=== PATIENT | male | born 1965 | race Native Hawaiian/Other Pacific Islander ===

== ENCOUNTER 2020-05-23 01:07 | Observation (INO) | payer OTHER ==
[2020-05-23 02:03] LABS: Basophils % (Auto) 0.2 % (0.0-1.8); Hematocrit 46.6 % (35.5-45.6); Hemoglobin 16.3 gm/dl (11.8-15.2); Lymphocytes # (Auto) 1.4 K/mm3 (1.2-5.4); Lymphocytes % (Auto) 7.9 % (13.4-35.0); Mean Corpuscular HGB Conc 35 % (32-34); Mean Corpuscular Volume 88 fl (84-94); Monocytes # (Auto) 0.7 K/mm3 (0.0-0.8); Monocytes % (Auto) 3.8 % (0.0-7.3); Platelet Count 298 K/mm3 (140-440); Red Cell Distribution Width 13.7 % (13.2-15.2)
[2020-05-23 02:21] LABS: Calcium 10.3 mg/dL (8.4-10.2)
[2020-05-23 02:35] LABS: Bacteria,Urine 2+ /HPF (Negative); Bilirubin,Urine NEG (Negative); Blood,Urine SM (Negative); Color,Urine Amber (Yellow); Mucus,Urine 1+ /HPF
[2020-05-23 02:39] LABS: Albumin 6.8 g/dL (3.9-5)
[2020-05-23] MEDS ORDERED: SODIUM CHLORIDE 0.9% 1000 ML 1,000 ML IV ONE ×5 (02:43→05:12)
--- NOTE | 2020-05-23 03:43 | Cat Scan Report ---
CT ABDOMEN AND PELVIS WITHOUT CONTRAST INDICATION: Generalized abdominal pain TECHNICAL: Multiple axial CT images of the abdomen and pelvis were acquired without intravenous contr ast. Sagittal and coronal reformats were obtained. All CTs at this facility utilize dose reduction techniques including automated exposure control, iterative reconstruction and weight based dosing whe n appropriate to reduce patient radiation dose to as low as reasonable achievable. COMPARISON: None. FINDINGS: Limited imaging of the bilateral lung bases demonstrates no evidence of acute abnormality. Abdomen: The liver, gallbladder, pancreas, spleen, bilateral adrenal glands and bilateral kidneys forrest w no evidence of acute abnormality. The abdominal aorta is normal in course and caliber. There is no evidence of bowel obstruction or free fluid. There may be mild wall thickening/edema of the small bow el, although the small bowel is relatively decompressed and this is difficult to determine. The appen compa is not visualized, but no pericecal inflammatory changes are noted. Pelvis: No free fluid is seen within the pelvis. The urinary bladder is decompressed and not well-vis ualized. Bones and Soft Tissues: Evaluation of bony structures demonstrates mild bony degenerative change of the lumbar spine. Evaluation of soft tissue structures demonstrates no evidence of acute soft tissue abnormality. IMPRESSION: 1. Possible mild wall thickening/edema of the small bowel, although this is difficult to determine. P lease correlate with patient's clinical presentation. Signer Name: Gissel Ely MD Signed: 05/23/2020 3:39 AM Workstation Name: [id number]
--- NOTE | 2020-05-23 03:44 | XRay Report ---
CHEST 2 VIEWS, 05/23/2020 3:10 AM INDICATION: Chest pain COMPARISON: None FINDINGS: Support devices: None. Heart: The cardiac silhouette is normal in size. Lungs/pleura: The lungs are well expanded and appear clear. Additional findings: Evaluation of bony structures demonstrates mild degenerative change of the thora cic spine. IMPRESSION: 1. No evidence of acute cardiopulmonary process. Signer Name: Gissel Ely MD Signed: 05/23/2020 3:40 AM Workstation Name: [email or web address]
[2020-05-23] MEDS ORDERED: SODIUM POLYSTYRENE 15 GM/60 ML ORAL LIQD PO ONE ×2 (03:48→03:55)
[2020-05-23] MEDS ORDERED: DEXTROSE 50% IN WATER (25GM) 50 ML SYRINGE IV ONE ×2 (03:48→03:53)
[2020-05-23] MEDS ORDERED: INSULIN REGULAR, HUMAN 100 UNIT/ML 3ML VIAL IV ONE ×2 (03:48→03:54)
[2020-05-23] MEDS ORDERED: CALCIUM CHLORIDE 1,000 MG/10 ML SYRINGE IV ONE (03:48)
[2020-05-23] MEDS ORDERED: HYDROmorphone 1 MG/1 ML INJ IV ONE (03:50)
[2020-05-23] MEDS ORDERED: ONDANSETRON 4 MG/2 ML INJ IV ONE ×2 (03:50→03:53)
[2020-05-23] MEDS ORDERED: PIPERACILLIN/TAZOBACTAM 3.375 3.375 GM/50 ML BAG IV ONE ×2 (03:51→03:53)
--- NOTE | 2020-05-23 03:52 | Emergency Department Report ---
ED General Adult HPI - General Chief complaint: Nausea/Vomiting/Diarrhea Stated complaint: BODY CRAMPS x3 DAYS NAUSEA VOMITING PUI?: No Time Seen by Provider: 05/23/20 03:48 Source: patient Mode of arrival: Ambulatory Limitations: No Limitations - History of Present Illness Initial comments: Patient is a 55-year-old male with past emergency room complaints of generalized body aches and muscle cramps and nausea and vomiting x3 days. Patient states his symptoms been going on for 3 days and the symptoms are worsening. Patient states the pain is an 8 out of 10. Patient states the pain is better with rest and worse with walking and movement. Patient states his nausea and vomiting is better with rest and n.p.o. Patient states his nausea vomiting is worse with trying to eat or drink something. Patient states is unable to hold food down for 3 days. Patient denies past medical history. Patient denies recent travel. Patient denies recent international travel. Patient denies exposure to the novel coronavirus. Patient denies sick contacts. Patient denies fever and chills. Patient denies cough. Patient denies diarrhea. Patient denies coming in contact with anybody with symptoms of the novel coronavirus. Patient states he had a coronavirus test 1 week ago and it was negative. -: Sudden, days(s) Severity scale (0 -10): 8 Quality: aching Consistency: constant Improves with: rest Worsens with: movement Associated Symptoms: nausea/vomiting. denies: confusion, chest pain, cough, diaphoresis, fever/chills, headaches, loss of appetite, malaise, rash, seizure, shortness of breath, syncope, weakness Treatments Prior to Arrival: none - Related Data Allergies Allergy/AdvReac Type Severity Reaction Status Date / Time No Known Allergies Allergy Verified 05/23/20 03:50 ED Review of Systems ROS: Stated complaint: BODY CRAMPS x3 DAYS NAUSEA VOMITING Other details as noted in HPI Constitutional: denies: chills, fever Eyes: denies: eye pain, eye discharge, vision change ENT: denies: ear pain, throat pain Respiratory: denies: cough, shortness of breath, wheezing Cardiovascular: denies: chest pain, palpitations Endocrine: no symptoms reported Gastrointestinal: nausea, vomiting. denies: abdominal pain, diarrhea Genitourinary: denies: urgency, dysuria Musculoskeletal: myalgia. denies: back pain, joint swelling, arthralgia Skin: denies: rash, lesions Neurological: denies: headache, weakness, paresthesias Psychiatric: denies: anxiety, depression Hematological/Lymphatic: denies: easy bleeding, easy bruising ED Past Medical Hx - Past Medical History Previous Medical History?: No Hx Hypertension: No Hx Diabetes: No Hx Renal Disease: No - Surgical History Past Surgical History?: No - Family History Family history: no significant - Social History Smoking Status: Current Every Day Smoker Substance Use Type: Alcohol ED Physical Exam - General Limitations: No Limitations General appearance: alert, in no apparent distress - Head Head exam: Present: atraumatic, normocephalic - Eye Eye exam: Present: normal appearance - ENT ENT exam: Present: mucous membranes moist - Neck Neck exam: Present: normal inspection - Respiratory Respiratory exam: Present: normal lung sounds bilaterally. Absent: respiratory distress - Cardiovascular Cardiovascular Exam: Present: regular rate, normal rhythm. Absent: systolic murmur, diastolic murmur, rubs, gallop - GI/Abdominal GI/Abdominal exam: Present: soft, normal bowel sounds - Rectal Rectal exam: Present: deferred - Extremities Exam Extremities exam: Present: normal inspection - Back Exam Back exam: Present: normal inspection - Neurological Exam Neurological exam: Present: alert, oriented X3 - Psychiatric Psychiatric exam: Present: normal affect, normal mood - Skin Skin exam: Present: warm, dry, intact, normal color. Absent: rash ED Course Vital Signs 05/23/20 05/23/20 01:13 04:15 Temperature 98.2 F Pulse Rate 78 Respiratory 18 18 Rate Blood Pressure 102/84 O2 Sat by Pulse 97 98 Oximetry - Reevaluation(s) Reevaluation #1: I discussed all results with patient. I discussed plan of care with patient. Patient agrees with plan of care and admission. Patient to be admitted to the hospitalist service. 05/23/20 05:16 - Consultations Consultation #1: I discussed case with nephrology, Dr. Dalton. Dr. Dalton does not have any further recommendations and orders never been placed. 05/23/20 04:23 Consultation #2: Hospitalist consulted for admission. Hospitalist to admit patient. 05/23/20 05:15 ED Medical Decision Making - Lab Data Result diagrams: 05/23/20 01:39 05/23/20 01:39 - EKG Data -: EKG Interpreted by Me EKG shows normal: sinus rhythm, axis, intervals, QRS complexes, ST-T waves Rate: normal - Radiology Data Radiology results: report reviewed interpreted by me: CHEST 2 VIEWS, 05/23/2020 3:10 AM INDICATION: Chest pain COMPARISON: None FINDINGS: Support devices: None. Heart: The cardiac silhouette is normal in size. Lungs/pleura: The lungs are well expanded and appear clear. Additional findings: Evaluation of bony structures demonstrates mild degenerative change of the thoracic spine. IMPRESSION: 1. No evidence of acute cardiopulmonary process. CT ABDOMEN AND PELVIS WITHOUT CONTRAST INDICATION: Generalized abdominal pain TECHNICAL: Multiple axial CT images of the abdomen and pelvis were acquired wit hout intravenous contrast. Sagittal and coronal reformats were obtained. All CTs at this facility utilize dose reduction techniques including automated exposure control, iterative reconstruction and weight based dosing when appropriate to reduce patient radiation dose to as low as reasonable achievable. COMPARISON: None. FINDINGS: Limited imaging of the bilateral lung bases demonstrates no evidence of acute abnormality. Abdomen: The liver, gallbladder, pancreas, spleen, bilateral adrenal glands and bilateral kidneys show no evidence of acute abnormality. The abdominal aorta is normal in course and caliber. There is no evidence of bowel obstruction or free fluid. There may be mild wall thickening/edema of the small bowel, although the small bowel is relatively decompressed and this is difficult to determine. The appendix is not visualized, but no pericecal inflammatory changes are noted. Pelvis: No free fluid is seen within the pelvis. The urinary bladder is decompre ssed and not well- visualized. Bones and Soft Tissues: Evaluation of bony structures demonstrates mild bony degenerative change of the lumbar spine. Evaluation of soft tissue structures demonstrates no evidence of acute soft tissue abnormality. IMPRESSION: 1. Possible mild wall thickening/edema of the small bowel, although this is difficult to determine. Please correlate with patient's clinical presentation. - Medical Decision Making Patient is a 61-year-old male that presents to the emergency room with complaints of myalgia, nausea and vomiting. Patient had labs done unremarkable except for lactic acidosis, acute renal failure, hyperkalemia, dehydration, elevated WBC, mildly elevated CK. Nephrology consulted early in the patient's stay. Patient given a hyperkalemia protocol. Patient given multiple normal saline boluses. Patient had a CT of the abdomen and a chest x-ray. Patient CT abdomen shows anterior colitis. Patient chest x-ray is negative. Patient admitted to the hospitalist service. - Differential Diagnosis Nausea, vomiting, dehydration, electrolyte imbalance, myalgias, cramps Critical Care Time: Yes Critical care time in (mins) excluding proc time.: 35 Critical care attestation.: If time is entered above; I have spent that time in minutes in the direct care of this critically ill patient, excluding procedure time. Critical Care Time: 35 minutes ED Disposition Clinical Impression: Hyperkalemia, Intractable nausea and vomiting, Myalgia, Dehydration, Elevated CK, Gastroenteritis, Lactic acid acidosis, SIRS (systemic inflammatory response syndrome) Acute renal failure Qualifiers: Acute renal failure type: unspecified Qualified Code(s): N17.9 - Acute kidney failure, unspecified UTI (urinary tract infection) Qualifiers: Urinary tract infection type: acute cystitis Hematuria presence: with hematuria Qualified Code(s): N30.01 - Acute cystitis with hematuria Disposition: 09 OP ADMIT IP TO THIS HOSP Is pt being admited?: Yes Does the pt Need Aspirin: No Condition: Critical Time of Disposition: 05:15
[2020-05-23] MEDS ORDERED: CALCIUM CHLORIDE 1,000 MG in SODIUM CHLORIDE 0.9% 100 ML IV ONE (03:53)
[2020-05-23] MEDS ORDERED: INSULIN REGULAR, HUMAN 100 UNITS/1 ML ONE (04:00)
[2020-05-23 07:18] LABS: Albumin 4.5 g/dL (3.9-5); Calcium 9.6 mg/dL (8.4-10.2)
[2020-05-23] MEDS ORDERED: METOCLOPRAMIDE 10 MG/2 ML INJ IV PRN (07:24)
[2020-05-23] MEDS ORDERED: ALUM-MAG HYDROXIDE-SIMETHICONE 200-200-20MG/5ML ORAL LIQD 30 ML PO PRN (07:24)
[2020-05-23] MEDS ORDERED: DEXTROSE 50% IN WATER (25GM) 50 ML SYRINGE IV PRN (07:24)
[2020-05-23] MEDS ORDERED: oxyCODONE /ACETAMINOPHEN 5-325MG TAB PO PRN (07:24)
[2020-05-23] MEDS ORDERED: ACETAMINOPHEN 325 MG TAB PO PRN (07:24)
[2020-05-23] MEDS ORDERED: SODIUM CHLORIDE 0.9% 1000 ML 1,000 ML IV SCH (08:30)
--- NOTE | 2020-05-23 08:56 | History and Physical Report ---
<TIERRA BARTH - Last Filed: 05/23/20 16:53> History of Present Illness Date of admission: 05/23/20 05:38 Chief complaint: muscle cramps for 3 days with vomiting x1 episode History of present illness: This is a 55-year-old Citizen Of The [place] speaking male with no medical history except HLD (not on medications) who presented on 05/23 with generalized body aches and muscle cramps for 3 days with one episode of vomiting on 05/22. He states he has not had any diarrhea. He denies CP, cough, hemoptysis, chils, fever, recent weight loss and night sweats. He denies any recent contacts with sick individuals or people with known COVID 19. He also produces a COVID 19 PCR from [place] on 05/12 [facility] shows he is negative for COVID at the time. 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 He states he has not has any food within the past 3 days and has only been drinking Gatorade. Workup in the ED included an CT abd/pelvis which shows anterior colitis and a CXR which shows no acute process. Labs revealed LA at 3.5, leukocytosis at 18.1, , hyponaturemia at 134, hyperkalemia at 7.7, metabolic acidosis with CO2 at 20, and MARY 3.6/44 possibly from vasomotor nephropathy, slightly elevated liver enzymes (AST 44, Alk phos 134), and an UA that shows leukocyte esterase but negative for ni trates. He received 5 L NS in the ED, zofran x2, kionex D50, insluin and zosyn in the ED. ID and nephrology was consulted. He will be admitted to the hospitalist service for electrolyte derangements, MARY, and UTI treatment. Advanced care planning done at bedside. Bedside interview conducted with the help of a shoe singer. Past History Past Medical History: hyperlipidemia Past Surgical History: No surgical history Social history: lives with family, full code. denies: smoking, alcohol abuse, prescription drug abuse, IV drug use Family history: no significant family history Medications and Allergies Allergies Allergy/AdvReac Type Severity Reaction Status Date / Time No Known Allergies Allergy Verified 05/23/20 03:50 Home Medications Medication Instructions Recorded Confirmed Last Taken Type No Known Home Medications [No 05/23/20 05/23/20 Unknown History Reported Home Medications] Active Meds: Active Medications Acetaminophen (Tylenol) 650 mg PO Q6H PRN PRN Reason: Pain MILD(1-3)/Fever >100.5/HAYES Al Hydrox/Mg Hydrox/Simethicone (Alum-Mag Hydrox-Simeth [phone]/5ml) 30 ml PO Q4H PRN PRN Reason: Indigestion Dextrose (D50w (25gm) Syringe) 50 ml IV Q30MIN PRN; Protocol PRN Reason: Hypoglycemia Famotidine (Pepcid) 20 mg IV QDAY SID Heparin Sodium (Porcine) (Heparin) 5,000 unit SUB-Q Q12HR SID Sodium Chloride (Nacl 0.9% 1000 Ml) 1,000 mls @ 250 mls/hr IV ONCE ONE Stop: 05/23/20 09:11 Sodium Chloride (Nacl 0.9% 1000 Ml) 1,000 mls @ 150 mls/hr IV DIRECT SID Cefepime HCl (Cefepime/Ns 1 Gm/100 Ml) 1 gm in 100 mls @ 200 mls/hr IV Q24HR SID; Protocol Metronidazole (Flagyl 500 Mg/100 Ml) 500 mg in 100 mls @ 100 mls/hr IV Q8HR SID ; Protocol Sodium Chloride (Nacl 0.9% 1000 Ml) 1,000 mls @ 0 mls/hr IV ONCE SID Stop: 05/24/20 08:31 Metoclopramide HCl (Reglan) 10 mg IV Q6H PRN PRN Reason: Nausea And Vomiting Oxycodone/Acetaminophen (Percocet 5/325) 1 tab PO Q6H PRN PRN Reason: Pain, Moderate (4-6) Sodium Chloride (Sodium Chloride Flush Syringe 10 Ml) 10 ml IV BID SID Sodium Chloride (Sodium Chloride Flush Syringe 10 Ml) 10 ml IV PRN PRN PRN Reason: LINE FLUSH Review of Systems Constitutional: weakness, poor appetite, no weight loss, no weight gain, no fever, no chills, no sweats, no night sweats, no anorexia, no fatigue Ears, nose, mouth and throat: no ear pain, no ear discharge, no tinnitis, no decreased hearing, no nose pain, no nasal congestion, no epistaxis, no bleeding gums Cardiovascular: no chest pain, no orthopnea, no palpitations, no rapid/irregular heart beat, no edema, no syncope, no lightheadedness, no shortness of breath, no dyspnea on exertion, no high blood pressure, no leg edema Respiratory: no cough, no cough with sputum, no excessive sputum, no hemoptysis, no shortness of breath, no dyspnea on exertion Gastrointestinal: nausea (one episode), no abdominal pain, no vomiting Genitourinary Male: no dysuria, no hematuria, no flank pain, no discharge Rectal: no pain, no incontinence, no bleeding, no hemorrhoids Musculoskeletal: muscle weakness, muscle cramps, no neck stiffness, no neck pain, no shooting arm pain, no arm numbness/tingling, no low back pain, no shooting leg pain, no leg numbness/tingling, no redness of joints, no hot joints, no morning stiffness, no frequent falls Integumentary: no deferred, no rash, no pruritis, no redness, no sores Neurological: weakness, no head injury, no transient paralysis, no paralysis, no parathesias, no numbness, no tingling, no seizures, no syncope, no tremors, no headaches Psychiatric: no anxiety, no memory loss, no change in sleep habits, no sleep disturbances Endocrine: no cold intolerance, no heat intolerance, no polyphagia, no excessive thirst, no polydipsia, no flushing, no weight change, no high blood sugars Hematologic/Lymphatic: no easy bruising, no easy bleeding Allergic/Immunologic: no urticaria, no allergic rhinitis, no persistent infections Exam - Constitutional Vitals: Temp Pulse Resp BP Pulse Ox 98.2 F 78 18 102/84 98 05/23/20 08:00 05/23/20 01:13 05/23/20 04:15 05/23/20 01:13 05/23/20 04:15 General appearance: Present: mild distress - EENT Eyes: Present: PERRL, EOM intact ENT: hearing intact - Neck Neck: Present: supple, normal ROM - Respiratory Respiratory effort: normal Respiratory: bilateral: CTA - Cardiovascular Rhythm: regular Heart Sounds: Present: S1 & S2. Absent: systolic murmur - Extremities Extremities: no ischemia, pulses intact, pulses symmetrical, No edema, normal temperature, normal color, Full ROM Peripheral Pulses: within normal limits - Abdominal General gastrointestinal: Present: soft, non-tender, non-distended, normal bowel sounds - Integumentary Integumentary: Present: clear, warm, dry - Musculoskeletal Musculoskeletal: generalized weakness - Psychiatric Psychiatric: appropriate mood/affect, cooperative - Neurologic Neurologic: CNII-XII intact, no focal deficits, moves all extremities - Allied Health Allied health notes reviewed: nursing Results - Labs CBC & Chem 7: 05/23/20 01:39 05/23/20 15:20 Labs: Laboratory Last Values WBC 18.1 K/mm3 (4.5-11.0) H 05/23/20 01:39 RBC 5.30 M/mm3 (3.65-5.03) H 05/23/20 01:39 Hgb 16.3 gm/dl (11.8-15.2) H 05/23/20 01:39 Hct 46.6 % (35.5-45.6) H 05/23/20 01:39 MCV 88 fl (84-94) 05/23/20 01:39 MCH 31 pg (28-32) 05/23/20 01:39 MCHC 35 % (32-34) H 05/23/20 01:39 RDW 13.7 % (13.2-15.2) 05/23/20 01:39 Plt Count 298 K/mm3 (140-440) 05/23/20 01:39 Lymph % (Auto) 7.9 % (13.4-35.0) L 05/23/20 01:39 [place] % (Auto) 3.8 % (0.0-7.3) 05/23/20 01:39 Eos % (Auto) 0.0 % (0.0-4.3) 05/23/20 01:39 Baso % (Auto) 0.2 % (0.0-1.8) 05/23/20 01:39 Lymph # 1.4 K/mm3 (1.2-5.4) 05/23/20 01:39 [place] # 0.7 K/mm3 (0.0-0.8) 05/23/20 01:39 Eos # 0.0 K/mm3 (0.0-0.4) 05/23/20 01:39 Baso # 0.0 K/mm3 (0.0-0.1) 05/23/20 01:39 Seg Neutrophils % 88.1 % (40.0-70.0) H 05/23/20 01:39 Seg Neutrophils # 16.0 K/mm3 (1.8-7.7) H 05/23/20 01:39 Sodium 141 mmol/L (137-145) D 05/23/20 05:54 Potassium 4.8 mmol/L (3.6-5.0) D 05/23/20 05:54 Chloride 103.0 mmol/L (98-107) 05/23/20 05:54 Carbon Dioxide 17 mmol/L (22-30) L 05/23/20 05:54 Anion Gap 26 mmol/L 05/23/20 05:54 BUN 38 mg/dL (9-20) H 05/23/20 05:54 Creatinine 2.4 mg/dL (0.8-1.3) H 05/23/20 05:54 Estimated GFR 28 ml/min 05/23/20 05:54 BUN/Creatinine Ratio 16 % 05/23/20 05:54 Glucose 145 mg/dL (75-100) H 05/23/20 05:54 Lactic Acid 4.60 mmol/L (0.7-2.0) H* 05/23/20 05:54 Calcium 9.6 mg/dL (8.4-10.2) 05/23/20 05:54 Total Bilirubin 0.60 mg/dL (0.1-1.2) 05/23/20 05:54 AST 29 units/L (5-40) 05/23/20 05:54 ALT 35 units/L (7-56) 05/23/20 05:54 Alkaline Phosphatase 91 units/L (35-129) 05/23/20 05:54 Total Creatine Kinase 321 units/L (55-170) H 05/23/20 01:39 Total Protein 7.9 g/dL (6.3-8.2) D 05/23/20 05:54 Albumin 4.5 g/dL (3.9-5) 05/23/20 05:54 Albumin/Globulin Ratio 1.3 % 05/23/20 05:54 Lipase 27 units/L (13-60) 05/23/20 03:36 Urine Color Pilar (Yellow) 05/23/20 Unknown Urine Turbidity Turbid (Clear) 05/23/20 Unknown Urine pH 5.0 (5.0-7.0) 05/23/20 Unknown Ur Specific [place] 1.020 (1.003-1.030) 05/23/20 Unknown Urine Protein 100 mg/dl mg/dL (Negative) 05/23/20 Unknown Urine Glucose (UA) Neg mg/dL (Negative) 05/23/20 Unknown Urine Ketones Tr mg/dL (Negative) 05/23/20 Unknown Urine Blood Sm (Negative) 05/23/20 Unknown Urine Nitrite Neg (Negative) 05/23/20 Unknown Urine Bilirubin Neg (Negative) 05/23/20 Unknown Urine Urobilinogen 2.0 mg/dL (<2.0) 05/23/20 Unknown Ur Leukocyte Esterase Tr (Negative) 05/23/20 Unknown Urine WBC (Auto) 10.0 /HPF (0.0-6.0) H 05/23/20 Unknown Urine RBC (Auto) 15.0 /HPF (0.0-6.0) 05/23/20 Unknown U Epithel Cells (Auto) 2.0 /HPF (0-13.0) 05/23/20 Unknown Urine Bacteria (Auto) 2+ /HPF (Negative) 05/23/20 Unknown Urine Mucus 1+ /HPF 05/23/20 Unknown Urine Yeast (Budding) 1+ /HPF 05/23/20 Unknown - Imaging and Cardiology Chest x-ray: report reviewed - Diagnostic Impressions Diagnostic Impressions: 05/23 CXR shows no evidence of acute cardiopulmonary process. 05/23 CT abd/pelvis shows possible mild wall thickening/edema of the small bowel, although this is difficult to determine. Fontaine/IV: IV Catheter Type [Left Upper INT / Saline Lock arm] Assessment and Plan VTE prophylaxis?: Chemical, Mechanical Plan of care discussed with patient/family: Yes - Patient Problems (1) SIRS (systemic inflammatory response syndrome) Current Visit: Yes Status: Acute Plan to address problem: -Presented with leukocytosis, MARY, lactic acidosis, hyperkalemia -Status post normal saline boluses -NS IV fluid -Trend CBC -05/23 urine culture -05/23 urinalysis added for leukocyte esterase but negative for nitrates, WBC 10 (2) Gastroenteritis Current Visit: Yes Status: Acute Plan to address problem: -05/23 CT abdomen pelvis shows mild wall thickening or edema of small bowel -GI consulted -Initiated IV antibiotic -IV antiemetics PRN -Supportive care (3) Acute renal failure Current Visit: Yes Status: Acute Qualifiers: Acute renal failure type: unspecified Qualified Code(s): N17.9 - Acute kidney failure, unspecified Plan to address problem: - Admit creatinine of 7.7 - Nephrology consulted in the emergency department - Received 5 L normal saline bolus, 20 units of regular insulin, 2 g of calcium chloride, 75 mL of D50 in the ED - 2 L normal saline bolus x1 MIVF NS at 125ml/hr - Trend BMP - Avoid nephrotoxic medication - Secondary to visible motor nephropathy ending of dehydration (4) UTI (urinary tract infection) Current Visit: Yes Status: Acute Qualifiers: Urinary tract infection type: acute cystitis Hematuria presence: with hematuria Qualified Code(s): N30.01 - Acute cystitis with hematuria Plan to address problem: -05/23 urine analysis positive for leukocyte esterase, WBC 10 -Initiated on cefepime -Infectious disease consulted -trend CBC -05/23 urine culture pending (5) Hyperkalemia Current Visit: Yes Status: Acute Plan to address problem: - Received 2 g calcium chloride, 75ml of D50, 20 units of insulin, Kionex 120 g - Trend BMP - Monitor for ECG changes (6) Dehydration Current Visit: Yes Status: Acute Plan to address problem: - s/p 5 L NS bolus in the ED - Give 2L NS bolus now - MIVF @ 125mL/hr - Trend BMP (7) Lactic acid acidosis Current Visit: Yes Status: Acute Plan to address problem: - Trend LA - s/p 5L NS bolus - 2 additional liters of NS - MIVF (8) Elevated CK Current Visit: Yes Status: Acute Plan to address problem: - Trend CK - MIVF and bolus IVF - s/p 5L NS bolus in ED (9) Myalgia Current Visit: Yes Status: Acute Plan to address problem: - PT/OT consult - Supportive care - Fall precautions (10) DVT prophylaxis Current Visit: Yes Status: Acute Plan to address problem: -SCDs to bilateral lower extremities while in bed -Heparin subcu (11) Full code status Current Visit: Yes Status: Acute <NGA SMALLS - Last Filed: 05/23/20 19:11> History of Present Illness Date of examination: 05/23/20 Date of admission: 05/23/20 05:38 Medications and Allergies Active Meds: Active Medications Acetaminophen (Tylenol) 650 mg PO Q6H PRN PRN Reason: Pain MILD(1-3)/Fever >100.5/HAYES Al Hydrox/Mg Hydrox/Simethicone (Alum-Mag Hydrox-Simeth [phone]/5ml) 30 ml PO Q4H PRN PRN Reason: Indigestion Dextrose (D50w (25gm) Syringe) 50 ml IV Q30MIN PRN; Protocol PRN Reason: Hypoglycemia Famotidine (Pepcid) 20 mg IV QDAY [facility] Last Admin: 05/23/20 10:01 Dose: 20 mg Documented by: Heparin Sodium (Porcine) (Heparin) 5,000 unit SUB-Q Q12HR [facility] Last Admin: 05/23/20 10:01 Dose: 5,000 unit Documented by: Sodium Chloride (Nacl 0.9% 1000 Ml) 1,000 mls @ 150 mls/hr IV DIRECT [facility] Last Admin: 05/23/20 12:08 Dose: 150 mls/hr Documented by: Sodium Chloride (Nacl 0.9% 1000 Ml) 1,000 mls @ 0 mls/hr IV ONCE [facility] Stop: 05/24/20 08:31 Metoclopramide HCl (Reglan) 10 mg IV Q6H PRN PRN Reason: Nausea And Vomiting Oxycodone/Acetaminophen (Percocet 5/325) 1 tab PO Q6H PRN PRN Reason: Pain, Moderate (4-6) Sodium Chloride (Sodium Chloride Flush Syringe 10 Ml) 10 ml IV BID [facility] Last Admin: 05/23/20 10:01 Dose: 10 ml Documented by: Sodium Chloride (Sodium Chloride Flush Syringe 10 Ml) 10 ml IV PRN PRN PRN Reason: LINE FLUSH Exam - Constitutional Vitals: Temp Pulse Resp BP Pulse Ox 98.1 F 61 18 130/68 98 05/23/20 17:59 05/23/20 17:59 05/23/20 17:59 05/23/20 17:59 05/23/20 17:59 Results - Labs CBC & Chem 7: 05/23/20 01:39 05/23/20 15:20 Labs: Laboratory Last Values WBC 18.1 K/mm3 (4.5-11.0) H 05/23/20 01:39 RBC 5.30 M/mm3 (3.65-5.03) H 05/23/20 01:39 Hgb 16.3 gm/dl (11.8-15.2) H 05/23/20 01:39 Hct 46.6 % (35.5-45.6) H 05/23/20 01:39 MCV 88 fl (84-94) 05/23/20 01:39 MCH 31 pg (28-32) 05/23/20 01:39 MCHC 35 % (32-34) H 05/23/20 01:39 RDW 13.7 % (13.2-15.2) 05/23/20 01:39 Plt Count 298 K/mm3 (140-440) 05/23/20 01:39 Lymph % (Auto) 7.9 % (13.4-35.0) L 05/23/20 01:39 [place] % (Auto) 3.8 % (0.0-7.3) 05/23/20 01:39 Eos % (Auto) 0.0 % (0.0-4.3) 05/23/20 01:39 Baso % (Auto) 0.2 % (0.0-1.8) 05/23/20 01:39 Lymph # 1.4 K/mm3 (1.2-5.4) 05/23/20 01:39 [place] # 0.7 K/mm3 (0.0-0.8) 05/23/20 01:39 Eos # 0.0 K/mm3 (0.0-0.4) 05/23/20 01:39 Baso # 0.0 K/mm3 (0.0-0.1) 05/23/20 01:39 Seg Neutrophils % 88.1 % (40.0-70.0) H 05/23/20 01:39 Seg Neutrophils # 16.0 K/mm3 (1.8-7.7) H 05/23/20 01:39 Sodium 144 mmol/L (137-145) 05/23/20 09:46 Potassium 4.6 mmol/L (3.6-5.0) 05/23/20 09:46 Chloride 106.6 mmol/L (98-107) 05/23/20 09:46 Carbon Dioxide 19 mmol/L (22-30) L 05/23/20 09:46 Anion Gap 23 mmol/L 05/23/20 09:46 BUN 27 mg/dL (9-20) H 05/23/20 15:20 Creatinine 1.0 mg/dL (0.8-1.3) 05/23/20 15:20 Estimated GFR > 60 ml/min 05/23/20 15:20 BUN/Creatinine Ratio 21 % 05/23/20 09:46 Glucose 118 mg/dL (75-100) H 05/23/20 09:46 Lactic Acid 1.80 mmol/L (0.7-2.0) 05/23/20 15:20 Calcium 9.8 mg/dL (8.4-10.2) 05/23/20 09:46 Total Bilirubin 0.60 mg/dL (0.1-1.2) 05/23/20 09:46 AST 31 units/L (5-40) 05/23/20 09:46 ALT 36 units/L (7-56) 05/23/20 09:46 Alkaline Phosphatase 94 units/L (35-129) 05/23/20 09:46 Total Creatine Kinase 366 units/L (55-170) H 05/23/20 15:20 Total Protein 8.5 g/dL (6.3-8.2) H 05/23/20 09:46 Albumin 4.8 g/dL (3.9-5) 05/23/20 09:46 Albumin/Globulin Ratio 1.3 % 05/23/20 09:46 Lipase 27 units/L (13-60) 05/23/20 03:36 Urine Color [place]ilar (Yellow) 05/23/20 Unknown Urine Turbidity Turbid (Clear) 05/23/20 Unknown Urine pH 5.0 (5.0-7.0) 05/23/20 Unknown Ur Specific [place] 1.020 (1.003-1.030) 05/23/20 Unknown Urine Protein 100 mg/dl mg/dL (Negative) 05/23/20 Unknown Urine Glucose (UA) Neg mg/dL (Negative) 05/23/20 Unknown Urine Ketones Tr mg/dL (Negative) 05/23/20 Unknown Urine Blood Sm (Negative) 05/23/20 Unknown Urine Nitrite Neg (Negative) 05/23/20 Unknown Urine Bilirubin Neg (Negative) 05/23/20 Unknown Urine Urobilinogen 2.0 mg/dL (<2.0) 05/23/20 Unknown Ur Leukocyte Esterase Tr (Negative) 05/23/20 Unknown Urine WBC (Auto) 10.0 /HPF (0.0-6.0) H 05/23/20 Unknown Urine RBC (Auto) 15.0 /HPF (0.0-6.0) 05/23/20 Unknown U Epithel Cells (Auto) 2.0 /HPF (0-13.0) 05/23/20 Unknown Urine Bacteria (Auto) 2+ /HPF (Negative) 05/23/20 Unknown Urine Mucus 1+ /HPF 05/23/20 Unknown Urine Yeast (Budding) 1+ /HPF 05/23/20 Unknown Fontaine/IV: Voiding Method Toilet IV Catheter Type [Left Upper INT / Saline Lock arm] Assessment and Plan Assessment and plan: I saw and evaluated the patient. I agree with the findings and the plan of care as documented in the Nurse Practitioner's~note, with the following corrections and additions. Dehydration noted aggressive hydration with noted improvement in renal function. Continue current management. Can downgrade to telemetry.
--- NOTE | 2020-05-23 09:17 | History and Physical Report ---
History of Present Illness Date of examination: 05/23/20 Date of admission: 05/23/20 05:38 Chief complaint: muscle cramps x3 days, vomiting x1 day History of present illness: Patient is a 55-year-old male with past emergency room complaints of generalized body aches and muscle cramps and nausea and vomiting x3 days. Patient states his symptoms been going on for 3 days and the symptoms are worsening. Patient states the pain is an 8 out of 10. Patient states the pain is better with rest and worse with walking and movement. Patient states his nausea and vomiting is better with rest and n.p.o. Patient states his nausea vomiting is worse with trying to eat or drink something. Patient states is unable to hold food down for 3 days. Patient denies past medical history. Patient denies recent travel. Patient denies recent international travel. Patient denies exposure to the novel coronavirus. Patient denies sick contacts. Patient denies fever and chills. Patient denies cough. Patient denies diarrhea. Patient denies coming in contact with anybody with symptoms of the novel coronavirus. Patient states he had a coronavirus test 1 week ago and it was negative. -: Sudden, days(s) Medications and Allergies Allergies Allergy/AdvReac Type Severity Reaction Status Date / Time No Known Allergies Allergy Verified 05/23/20 03:50 Active Meds: Active Medications Acetaminophen (Tylenol) 650 mg PO Q6H PRN PRN Reason: Pain MILD(1-3)/Fever >100.5/HAYES Al Hydrox/Mg Hydrox/Simethicone (Alum-Mag Hydrox-Simeth [phone]/5ml) 30 ml PO Q4H PRN PRN Reason: Indigestion Dextrose (D50w (25gm) Syringe) 50 ml IV Q30MIN PRN; Protocol PRN Reason: Hypoglycemia Famotidine (Pepcid) 20 mg IV QDAY SID Heparin Sodium (Porcine) (Heparin) 5,000 unit SUB-Q Q12HR SID Sodium Chloride (Nacl 0.9% 1000 Ml) 1,000 mls @ 250 mls/hr IV ONCE ONE Stop: 05/23/20 09:11 Sodium Chloride (Nacl 0.9% 1000 Ml) 1,000 mls @ 150 mls/hr IV DIRECT SID Cefepime HCl (Cefepime/Ns 1 Gm/100 Ml) 1 gm in 100 mls @ 200 mls/hr IV Q24HR SID; Protocol Metronidazole (Flagyl 500 Mg/100 Ml) 500 mg in 100 mls @ 100 mls/hr IV Q8HR SID; Protocol Sodium Chloride (Nacl 0.9% 1000 Ml) 1,000 mls @ 0 mls/hr IV ONCE SID Stop: 05/24/20 08:31 Metoclopramide HCl (Reglan) 10 mg IV Q6H PRN PRN Reason: Nausea And Vomiting Oxycodone/Acetaminophen (Percocet 5/325) 1 tab PO Q6H PRN PRN Reason: Pain, Moderate (4-6) Sodium Chloride (Sodium Chloride Flush Syringe 10 Ml) 10 ml IV BID SID Sodium Chloride (Sodium Chloride Flush Syringe 10 Ml) 10 ml IV PRN PRN PRN Reason: LINE FLUSH Exam - Constitutional Vitals: Temp Pulse Resp BP Pulse Ox 98.2 F 78 18 102/84 98 05/23/20 01:13 05/23/20 01:13 05/23/20 04:15 05/23/20 01:13 05/23/20 04:15 Results - Labs CBC & Chem 7: 05/23/20 01:39 05/23/20 05:54 Labs: Laboratory Last Values WBC 18.1 K/mm3 (4.5-11.0) H 05/23/20 01:39 RBC 5.30 M/mm3 (3.65-5.03) H 05/23/20 01:39 Hgb 16.3 gm/dl (11.8-15.2) H 05/23/20 01:39 Hct 46.6 % (35.5-45.6) H 05/23/20 01:39 MCV 88 fl (84-94) 05/23/20 01:39 MCH 31 pg (28-32) 05/23/20 01:39 MCHC 35 % (32-34) H 05/23/20 01:39 RDW 13.7 % (13.2-15.2) 05/23/20 01:39 Plt Count 298 K/mm3 (140-440) 05/23/20 01:39 Lymph % (Auto) 7.9 % (13.4-35.0) L 05/23/20 01:39 [place] % (Auto) 3.8 % (0.0-7.3) 05/23/20 01:39 Eos % (Auto) 0.0 % (0.0-4.3) 05/23/20 01:39 Baso % (Auto) 0.2 % (0.0-1.8) 05/23/20 01:39 Lymph # 1.4 K/mm3 (1.2-5.4) 05/23/20 01:39 [place] # 0.7 K/mm3 (0.0-0.8) 05/23/20 01:39 Eos # 0.0 K/mm3 (0.0-0.4) 05/23/20 01:39 Baso # 0.0 K/mm3 (0.0-0.1) 05/23/20 01:39 Seg Neutrophils % 88.1 % (40.0-70.0) H 05/23/20 01:39 Seg Neutrophils # 16.0 K/mm3 (1.8-7.7) H 05/23/20 01:39 Sodium 141 mmol/L (137-145) D 05/23/20 05:54 Potassium 4.8 mmol/L (3.6-5.0) D 05/23/20 05:54 Chloride 103.0 mmol/L (98-107) 05/23/20 05:54 Carbon Dioxide 17 mmol/L (22-30) L 05/23/20 05:54 Anion Gap 26 mmol/L 05/23/20 05:54 BUN 38 mg/dL (9-20) H 05/23/20 05:54 Creatinine 2.4 mg/dL (0.8-1.3) H 05/23/20 05:54 Estimated GFR 28 ml/min 05/23/20 05:54 BUN/Creatinine Ratio 16 % 05/23/20 05:54 Glucose 145 mg/dL (75-100) H 05/23/20 05:54 Lactic Acid 4.60 mmol/L (0.7-2.0) H* 05/23/20 05:54 Calcium 9.6 mg/dL (8.4-10.2) 05/23/20 05:54 Total Bilirubin 0.60 mg/dL (0.1-1.2) 05/23/20 05:54 AST 29 units/L (5-40) 05/23/20 05:54 ALT 35 units/L (7-56) 05/23/20 05:54 Alkaline Phosphatase 91 units/L (35-129) 05/23/20 05:54 Total Creatine Kinase 321 units/L (55-170) H 05/23/20 01:39 Total Protein 7.9 g/dL (6.3-8.2) D 05/23/20 05:54 Albumin 4.5 g/dL (3.9-5) 05/23/20 05:54 Albumin/Globulin Ratio 1.3 % 05/23/20 05:54 Lipase 27 units/L (13-60) 05/23/20 03:36 Urine Color [place]ilar (Yellow) 05/23/20 Unknown Urine Turbidity Turbid (Clear) 05/23/20 Unknown Urine pH 5.0 (5.0-7.0) 05/23/20 Unknown Ur Specific [place] 1.020 (1.003-1.030) 05/23/20 Unknown Urine Protein 100 mg/dl mg/dL (Negative) 05/23/20 Unknown Urine Glucose (UA) Neg mg/dL (Negative) 05/23/20 Unknown Urine Ketones Tr mg/dL (Negative) 05/23/20 Unknown Urine Blood Sm (Negative) 05/23/20 Unknown Urine Nitrite Neg (Negative) 05/23/20 Unknown Urine Bilirubin Neg (Negative) 05/23/20 Unknown Urine Urobilinogen 2.0 mg/dL (<2.0) 05/23/20 Unknown Ur Leukocyte Esterase Tr (Negative) 05/23/20 Unknown Urine WBC (Auto) 10.0 /HPF (0.0-6.0) H 05/23/20 Unknown Urine RBC (Auto) 15.0 /HPF (0.0-6.0) 05/23/20 Unknown U Epithel Cells (Auto) 2.0 /HPF (0-13.0) 05/23/20 Unknown Urine Bacteria (Auto) 2+ /HPF (Negative) 05/23/20 Unknown Urine Mucus 1+ /HPF 05/23/20 Unknown Urine Yeast (Budding) 1+ /HPF 05/23/20 Unknown Fontaine/IV: IV Catheter Type [Left Upper INT / Saline Lock arm]
[2020-05-23] MEDS ORDERED: CEFEPIME/NS 1 GM/100 ML 1 GM/100 ML BAG IV SCH ×2 (10:00→22:00)
[2020-05-23] MEDS: HEPARIN 5,000 UNIT/1 ML VIAL SUB-Q SCH ×2 (10:01→22:27)
[2020-05-23] MEDS: FAMOTIDINE 20 MG/2 ML INJ IV SCH (10:01)
[2020-05-23 10:25] LABS: Albumin 4.8 g/dL (3.9-5); Calcium 9.8 mg/dL (8.4-10.2)
--- NOTE | 2020-05-23 11:36 | Consultation ---
History of Present Illness - Reason for Consult Consult date: 05/23/20 acute renal failure, hyperkalemia Requesting physician: TIERRA BARTH - History of Present Illness This is a 55yo M with past medical history of hyperlipidemia, who presents to ER with complaints of generalized body aches and muscle cramps for 3 days with one episode of vomiting on 05/22. denies diarrhea, CP, cough, hemoptysis, chils, fever, recent weight loss and night sweats. He denies any recent contacts with sick individuals or people with known COVID 19. He also had COVID 19 PCR test at [facility] on 05/[address] abd/pelvis in ER showed anterior colitis and a CXR which shows no acute process. Labs revealed LA at 3.5, leukocytosis at 18.1, , hyponaturemia at 134, hyperkalemia at 7.7, metabolic acidosis with CO2 at 20, along with elevated BUN/Cr at 41/3.6mg/dl. renal consult is requested for management of MARY/hyperkalemia. Pt was treated medically for hyperkalemia with kionex, D50, insluin and received 5L IV NS. Pt denies previous history for MARY, no recent NSAIDs use or IV contrast exposure. Past History Past Medical History: hyperlipidemia Past Surgical History: No surgical history Social history: no significant social history Family history: no significant family history Medications and Allergies Allergies Allergy/AdvReac Type Severity Reaction Status Date / Time No Known Allergies Allergy Verified 05/23/20 03:50 Home Medications Medication Instructions Recorded Confirmed Last Taken Type No Known Home Medications [No 05/23/20 05/23/20 Unknown History Reported Home Medications] Active Meds: Active Medications Acetaminophen (Tylenol) 650 mg PO Q6H PRN PRN Reason: Pain MILD(1-3)/Fever >100.5/HAYES Al Hydrox/Mg Hydrox/Simethicone (Alum-Mag Hydrox-Simeth [id number]/5ml) 30 ml PO Q4H PRN PRN Reason: Indigestion Dextrose (D50w (25gm) Syringe) 50 ml IV Q30MIN PRN; Protocol PRN Reason: Hypoglycemia Famotidine (Pepcid) 20 mg IV QDAY SID Last Admin: 05/23/20 10:01 Dose: 20 mg Documented by: Heparin Sodium (Porcine) (Heparin) 5,000 unit SUB-Q Q12HR SID Last Admin: 05/23/20 10:01 Dose: 5,000 unit Documented by: Sodium Chloride (Nacl 0.9% 1000 Ml) 1,000 mls @ 150 mls/hr IV DIRECT SID Metronidazole (Flagyl 500 Mg/100 Ml) 500 mg in 100 mls @ 100 mls/hr IV Q8HR SID; Protocol Sodium Chloride (Nacl 0.9% 1000 Ml) 1,000 mls @ 0 mls/hr IV ONCE SID Stop: 05/24/20 08:31 Cefepime HCl (Cefepime/Ns 1 Gm/100 Ml) 1 gm in 100 mls @ 200 mls/hr IV Q12HR SID; Protocol Metoclopramide HCl (Reglan) 10 mg IV Q6H PRN PRN Reason: Nausea And Vomiting Oxycodone/Acetaminophen (Percocet 5/325) 1 tab PO Q6H PRN PRN Reason: Pain, Moderate (4-6) Sodium Chloride (Sodium Chloride Flush Syringe 10 Ml) 10 ml IV BID SID Last Admin: 05/23/20 10:01 Dose: 10 ml Documented by: Sodium Chloride (Sodium Chloride Flush Syringe 10 Ml) 10 ml IV PRN PRN PRN Reason: LINE FLUSH Review of Systems All systems: negative Constitutional: anorexia, weakness, malaise, lethargy, poor appetite Gastrointestinal: nausea, vomiting Exam - Vital Signs Vital signs: Vital Signs Temp Pulse Resp BP Pulse Ox 98.2 F 78 18 102/84 97 05/23/20 01:13 05/23/20 01:13 05/23/20 01:13 05/23/20 01:13 05/23/20 01:13 - General Appearance General appearance: well-developed, well-nourished, appears stated age EENT: ATNC, PERRL, mucous membranes moist Neck: Present: neck supple Respiratory: Clear to Ascultation Heart: regular, S1S2 Gastrointestinal: Present: normoactive bowel sounds Integumentary: no rash, other (no edema ) Neurologic: no focal deficit, alert and oriented x3, strength 5/5, CN 3-12 intact Psychiatric: mood/affect appropriate, cooperative Results - Lab Results 05/23/20 01:39 05/23/20 09:46 Most recent lab results Calcium 9.8 mg/dL (8.4-10.2) 05/23/20 09:46 Assessment and Plan - Patient Problems (1) Acute renal failure Current Visit: Yes Status: Acute Qualifiers: Acute renal failure type: unspecified Qualified Code(s): N17.9 - Acute kidney failure, unspecified Plan to address problem: likely pre-renal azotemia in the setting of gastroenteritis/sepsis. Renal function improving on IVF, cont IV NS at 75ml/hr. check urine lytes, urine P/C ratio. avoid nephrotoxins, maintain MAP > 65mmHg. Will monitor lytes and renal parameters closely and make further recommendations (2) Hyperkalemia Current Visit: Yes Status: Acute Plan to address problem: d/t decreased distal tubular Na delivery in the setting of MARY. improving s/p medical treatment and on IV NS. cont 2g K renal diet (3) Gastroenteritis Current Visit: Yes Status: Acute Plan to address problem: management as per primary attending (4) Lactic acid acidosis Current Visit: Yes Status: Acute Plan to address problem: LA trending down (5) SIRS (systemic inflammatory response syndrome) Current Visit: Yes Status: Acute
[2020-05-23] MEDS: SODIUM CHLORIDE 0.9% 1000 ML 1,000 ML IV SCH ×2 (12:08→22:29)
[2020-05-23] MEDS ORDERED: metroNIDAZOLE/NS 500 MG/100 ML 500 MG/100 ML BAG IV SCH (14:00)
--- NOTE | 2020-05-23 15:15 | Consultation ---
History of Present Illness - Reason for Consult Consult date: 05/23/20 UTI/colitis Requesting physician: TIERRA BARTH - History of Present Illness The patient is a 55-year-old male with hyperlipidemia not on any medications came into the emergency room with generalized body aches, muscle cramps going on for 3 days. He also had some vomiting but no diarrhea. He has not had any fever. He tested negative for COVID-19 at [facility] on 05/12/2020. Additional evaluation in the emergency room showed leukocytosis, hyponatremia, hyperkalemia along with lactic acidosis and creatinine elevation. CT scan of his abdomen and pelvis without contrast showed some edema of the small bowel. Chest x-ray did not reveal any evidence of pneumonia. UA showed 10 WBCs. He is feeling well. Got hydration, creaitnine improving. Had 4 BMs today. No urinary burning. Review of Systems: General: no fevers,chills or rigors HEENT: no new visual disturbance Respiratory: No cough, sputum, hemoptysis or shortness of breath Cardiovascular: No chest pain, syncope Gastrointestinal: currently, no abdominal pain, nausea or vomiting Genitourinary: No dysuria or hematuria Musculoskeletal: No new or worsening neck pain or back pain Neurologic: No headaches, seizures Hematologic: No easy bruising or bleeding Endocrine: No night sweats or acute weight loss Skin: negative for rash, jaundice Psychiatric: No suicidal or homicidal ideation Past History Past Medical History: hyperlipidemia Past Surgical History: No surgical history Social history: no significant social history Family history: no significant family history Medications and Allergies Allergies Allergy/AdvReac Type Severity Reaction Status Date / Time No Known Allergies Allergy Verified 05/23/20 03:50 Home Medications Medication Instructions Recorded Confirmed Last Taken Type No Known Home Medications [No 05/23/20 05/23/20 Unknown History Reported Home Medications] Active Meds: Active Medications Acetaminophen (Tylenol) 650 mg PO Q6H PRN PRN Reason: Pain MILD(1-3)/Fever >100.5/HAYES Al Hydrox/Mg Hydrox/Simethicone (Alum-Mag Hydrox-Simeth 877-408-70pm/5ml) 30 ml PO Q4H PRN PRN Reason: Indigestion Dextrose (D50w (25gm) Syringe) 50 ml IV Q30MIN PRN; Protocol PRN Reason: Hypoglycemia Famotidine (Pepcid) 20 mg IV QDAY [facility] Last Admin: 05/23/20 10:01 Dose: 20 mg Documented by: Heparin Sodium (Porcine) (Heparin) 5,000 unit SUB-Q Q12HR [facility] Last Admin: 05/23/20 10:01 Dose: 5,000 unit Documented by: Sodium Chloride (Nacl 0.9% 1000 Ml) 1,000 mls @ 150 mls/hr IV DIRECT [facility] Last Admin: 05/23/20 12:08 Dose: 150 mls/hr Documented by: Metronidazole (Flagyl 500 Mg/100 Ml) 500 mg in 100 mls @ 100 mls/hr IV Q8HR [facility]; Protocol Last Admin: 05/23/20 14:14 Dose: 100 mls/hr Documented by: Sodium Chloride (Nacl 0.9% 1000 Ml) 1,000 mls @ 0 mls/hr IV ONCE SID Stop: 05/24/20 08:31 Cefepime HCl (Cefepime/Ns 1 Gm/100 Ml) 1 gm in 100 mls @ 200 mls/hr IV Q12HR [facility]; Protocol Metoclopramide HCl (Reglan) 10 mg IV Q6H PRN PRN Reason: Nausea And Vomiting Oxycodone/Acetaminophen (Percocet 5/325) 1 tab PO Q6H PRN PRN Reason: Pain, Moderate (4-6) Sodium Chloride (Sodium Chloride Flush Syringe 10 Ml) 10 ml IV BID [facility] Last Admin: 05/23/20 10:01 Dose: 10 ml Documented by: Sodium Chloride (Sodium Chloride Flush Syringe 10 Ml) 10 ml IV PRN PRN PRN Reason: LINE FLUSH Physical Examination - Physical Exam Narrative exam: Physical Exam: Constitutional: Alert, cooperative. No acute distress Head, Ears, Nose: Normocephalic, atraumatic. External ears, nose normal Eyes: Conjunctivae/corneas clear. No icterus. No ptosis. Neck: Supple, no meningeal signs Cardiovascular: S1, S2 normal. Respiratory: Good air entry, clear to auscultation bilaterally GI: Soft, non-tender; bowel sounds normal. No peritoneal signs Musculoskeletal: No pedal edema, no cyanosis. Skin: No rash or abscess Hem/Lymphatic: No palpable cervical or supraclavicular nodes. No lymphangitis Psych: Mood ok. Affect normal Neurological: Awake, alert, oriented. No gross abnormality - Constitutional Vitals: Vital Signs Temp Pulse Resp BP Pulse Ox 98.2 F 77 15 145/73 97 05/23/20 09:07 05/23/20 12:03 05/23/20 10:41 05/23/20 10:41 05/23/20 10:41 Temperature -Last 24 Hours Temperature 98.2 F Temperature 98.2 F Temperature 98.2 F Results - Labs CBC & Chem 7: 05/23/20 01:39 05/23/20 09:46 Labs: Abnormal lab results 05/23/20 05/23/20 05/23/20 Range/Units 01:39 01:39 03:36 WBC 18.1 H (4.5-11.0) K/mm3 RBC 5.30 H (3.65-5.03) M/mm3 Hgb 16.3 H (11.8-15.2) gm/dl Hct 46.6 H (35.5-45.6) % MCHC 35 H (32-34) % Lymph % (Auto) 7.9 L (13.4-35.0) % Seg Neutrophils % 88.1 H (40.0-70.0) % Seg Neutrophils # 16.0 H (1.8-7.7) K/mm3 Sodium 134 L (137-145) mmol/L Potassium 7.7 H* (3.6-5.0) mmol/L Chloride 90.2 L (98-107) mmol/L Carbon Dioxide 20 L (22-30) mmol/L BUN 41 H (9-20) mg/dL Creatinine 3.6 H (0.8-1.3) mg/dL Glucose 158 H (75-100) mg/dL Lactic Acid 3.50 H* (0.7-2.0) mmol/L Calcium 10.3 H (8.4-10.2) mg/dL AST 44 H (5-40) units/L Alkaline Phosphatase 134 H (35-129) units/L Total Creatine Kinase 321 H (55-170) units/L Total Protein 11.3 H (6.3-8.2) g/dL Albumin 6.8 H (3.9-5) g/dL Urine WBC (Auto) (0.0-6.0) /HPF 05/23/20 05/23/20 05/23/20 Range/Units 05:54 05:54 09:46 WBC (4.5-11.0) K/mm3 RBC (3.65-5.03) M/mm3 Hgb (11.8-15.2) gm/dl Hct (35.5-45.6) % MCHC (32-34) % Lymph % (Auto) (13.4-35.0) % Seg Neutrophils % (40.0-70.0) % Seg Neutrophils # (1.8-7.7) K/mm3 Sodium (137-145) mmol/L Potassium (3.6-5.0) mmol/L Chloride (98-107) mmol/L Carbon Dioxide 17 L 19 L (22-30) mmol/L BUN 38 H 32 H (9-20) mg/dL Creatinine 2.4 H 1.5 H (0.8-1.3) mg/dL Glucose 145 H 118 H (75-100) mg/dL Lactic Acid 4.60 H* (0.7-2.0) mmol/L Calcium (8.4-10.2) mg/dL AST (5-40) units/L Alkaline Phosphatase (35-129) units/L Total Creatine Kinase (55-170) units/L Total Protein 8.5 H (6.3-8.2) g/dL Albumin (3.9-5) g/dL Urine WBC (Auto) (0.0-6.0) /HPF 05/23/20 05/23/20 Range/Units 09:46 Unknown WBC (4.5-11.0) K/mm3 RBC (3.65-5.03) M/mm3 Hgb (11.8-15.2) gm/dl Hct (35.5-45.6) % MCHC (32-34) % Lymph % (Auto) (13.4-35.0) % Seg Neutrophils % (40.0-70.0) % Seg Neutrophils # (1.8-7.7) K/mm3 Sodium (137-145) mmol/L Potassium (3.6-5.0) mmol/L Chloride (98-107) mmol/L Carbon Dioxide (22-30) mmol/L BUN (9-20) mg/dL Creatinine (0.8-1.3) mg/dL Glucose (75-100) mg/dL Lactic Acid 2.90 H* (0.7-2.0) mmol/L Calcium (8.4-10.2) mg/dL AST (5-40) units/L Alkaline Phosphatase (35-129) units/L Total Creatine Kinase (55-170) units/L Total Protein (6.3-8.2) g/dL Albumin (3.9-5) g/dL Urine WBC (Auto) 10.0 H (0.0-6.0) /HPF - Imaging and Cardiology Chest x-ray: report reviewed, image reviewed (no pneumonia) Assessment and Plan Cultures: none A/P: 55-year-old male with hyperlipidemia not on any medications came into the emerge ncy room with generalized body aches, muscle cramps going on for 3 days: #Question of colitis: Patient with no diarrhea prior to admission. Has some edema of the small bowel, no report of colitis on the CT scan. 4 BMs today, probably antibiotic related. Leucocytosis is likely reactive, also a component of hemoconcentration. #UTI: No urinary burning. UA showed 10 WBCs. #Acute kidney injury: Creatinine improving with hydration. Recs: Antibiotics discontinued continue supportive care recheck CBC in AM Reuben Norwood MD, FACP [facility] ([facility] C: [phone] O: [phone] F: [phone]
[2020-05-23 16:14] LABS: Blood Urea Nitrogen 27 mg/dL (9-20)
[2020-05-24] MEDS: SODIUM CHLORIDE 0.9% 1000 ML 1,000 ML IV SCH (02:57)
[2020-05-24 04:11] LABS: Basophils % (Auto) 0.3 % (0.0-1.8); Eosinophils # (Auto) 0.1 K/mm3 (0.0-0.4); Eosinophils % (Auto) 0.8 % (0.0-4.3); Hematocrit 35.7 % (35.5-45.6); Hemoglobin 12.6 gm/dl (11.8-15.2); Lymphocytes # (Auto) 2.7 K/mm3 (1.2-5.4); Lymphocytes % (Auto) 35.6 % (13.4-35.0); Mean Corpuscular HGB Conc 35 % (32-34); Mean Corpuscular Volume 91 fl (84-94); Monocytes # (Auto) 0.5 K/mm3 (0.0-0.8); Monocytes % (Auto) 7.1 % (0.0-7.3); Platelet Count 182 K/mm3 (140-440); Red Blood Count 3.93 M/mm3 (3.65-5.03); Red Cell Distribution Width 13.1 % (13.2-15.2)
[2020-05-24 04:14] LABS: Blood Urea Nitrogen 19 mg/dL (9-20); Calcium 8.5 mg/dL (8.4-10.2); Hemolysis Index 16
[2020-05-24 04:23] LABS: BUN/Creatinine Ratio 27
--- NOTE | 2020-05-24 09:53 | Progress Note ---
Assessment and Plan - Patient Problems (1) Acute renal failure Current Visit: Yes Status: Acute Qualifiers: Acute renal failure type: unspecified Qualified Code(s): N17.9 - Acute kidney failure, unspecified Plan to address problem: likely pre-renal azotemia in the setting of gastroenteritis/sepsis. Renal function normalized, pt with good po intake, can d/c IVF. avoid nephrotoxins, maintain MAP > 65mmHg. stable for discharge from renal stand point (2) Hyperkalemia Current Visit: Yes Status: Acute Plan to address problem: normalized. cont 2g K renal diet (3) Gastroenteritis Current Visit: Yes Status: Acute Plan to address problem: management as per primary attending (4) Lactic acid acidosis Current Visit: Yes Status: Acute Plan to address problem: LA trending down (5) SIRS (systemic inflammatory response syndrome) Current Visit: Yes Status: Acute Subjective Date of service: 05/24/20 Principal diagnosis: MARY Interval history: patient awake, alert, in no acute distress, denies fever, chills, n/v/d SOB, CP, palpitations, dysuria, diarrhea, abd pain Objective - Vital Signs Vital signs: Vital Signs - 12hr 05/23/20 05/23/20 05/24/20 22:00 23:51 00:01 Temperature 98.0 F Pulse Rate 55 L 48 L Pulse Rate [ 59 L From Monitor] Respiratory 20 18 Rate Respiratory 20 Rate [ Generalized] Blood Pressure 136/75 O2 Sat by Pulse 99 98 Oximetry 05/24/20 04:36 Temperature 98.0 F Pulse Rate 56 L Pulse Rate [ From Monitor] Respiratory 18 Rate Respiratory Rate [ Generalized] Blood Pressure 110/64 O2 Sat by Pulse 96 Oximetry - General Appearance General appearance: well-developed, well-nourished, appears stated age EENT: ATNC, PERRL, mucous membranes moist Neck: no JVD Respiratory: Present: Clear to Ascultation Cardiology: regular, S1S2 Gastrointestinal: normoactive bowel sounds Integumentary: no rash Neurologic: no focal deficit, alert and oriented x3, strength 5/5, CN 3-12 intact Psychiatric: mood/affect appropriate, cooperative - Lab 05/24/20 03:19 05/24/20 03:19 Most recent lab results Calcium 8.5 mg/dL (8.4-10.2) 05/24/20 03:19 Medications & Allergies - Medications Allergies/Adverse Reactions: Allergies No Known Allergies Allergy (Verified 05/23/20 03:50) Home Medications: Home Medications Medication Instructions Recorded Confirmed Last Taken Type No Known Home Medications [No 05/23/20 05/23/20 Unknown History Reported Home Medications] Active Medications: Generic Name Dose Route Start Last Admin Trade Name Freq PRN Reason Stop Dose Admin Acetaminophen 650 mg 05/23/20 07:24 Tylenol PO Q6H PRN Pain MILD(1-3)/Fever >100.5/HAYES Al Hydrox/Mg Hydrox/Simethicone 30 ml 05/23/20 07:24 Alum-Mag Hydrox-Simeth 819-787-56kx/5ml PO Q4H PRN Indigestion Dextrose 50 ml 05/23/20 07:24 D50w (25gm) Syringe IV Q30MIN PRN Hypoglycemia Protocol Famotidine 20 mg 05/23/20 10:00 05/23/20 10:01 Pepcid IV 20 mg QDAY SID Administration Heparin Sodium (Porcine) 5,000 unit 05/23/20 10:00 05/23/20 22:27 Heparin SUB-Q 5,000 unit Q12HR SID Administration Metoclopramide HCl 10 mg 05/23/20 07:24 Reglan IV Q6H PRN Nausea And Vomiting Oxycodone/Acetaminophen 1 tab 05/23/20 07:24 Percocet 5/325 PO Q6H PRN Pain, Moderate (4-6) Sodium Chloride 10 ml 05/23/20 10:00 05/23/20 22:29 Sodium Chloride Flush Syringe 10 Ml IV 10 ml BID SID Administration Sodium Chloride 10 ml 05/23/20 07:24 Sodium Chloride Flush Syringe 10 Ml IV PRN PRN LINE FLUSH
[2020-05-24] MEDS: HEPARIN 5,000 UNIT/1 ML VIAL SUB-Q SCH (10:39)
[2020-05-24] MEDS: FAMOTIDINE 20 MG/2 ML INJ IV SCH (10:39)
--- NOTE | 2020-05-24 10:55 | Discharge Summary ---
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 He states he has not had any diarrhea. He denies CP, cough, hemoptysis, chils, fever, recent weight loss and night sweats. He denies any recent contacts with sick individuals or people with known COVID 19. He also produces a COVID 19 PCR from [facility] on 05/12 [facility] shows he is negative for COVID at the time. 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 He states he has not has any food within the past 3 days and has only been drinking Gatorade. Workup in the ED included an CT abd/pelvis which shows anterior colitis and a CXR which shows no acute process. Labs revealed LA at 3.5, leukocytosis at 18.1, , hyponaturemia at 134, hyperkalemia at 7.7, metabolic acidosis with CO2 at 20, and MARY 3.6/44 possibly from vasomotor nephropathy, slightly elevated liver enzymes (AST 44, Alk phos 134), and an UA that shows leukocyte esterase but negative for nitrates. He received 5 L NS in the ED, zofran x2, kionex D50, insluin and zosyn in the ED. ID and nephrology was consulted. He will be admitted to the hospitalist service for electrolyte derangements, MARY, and UTI treatment. Advanced care planning done at bedside. Bedside interview conducted with the help of a pediatric urologist. Patient on admission was started on aggressive fluid resuscitation. It appeared that he had been significantly dehydrated. Nephrology and ID were consulted recommended to stay the course and avoid any nephrotoxic medication. IV antibiotics was discontinued as leukocytosis was likely secondary to dehydration and was reactive patient did not demonstrate any fever. This morning continues to be stable did have a little bradycardia but asymptomatic at extensive discussion with the patient about hydration and follow-up appointments with primary care physicians to ensure continued improvement. He verbalized understanding. His potassium also improved. (1) SIRS (systemic inflammatory response syndrome) (2) Gastroenteritis (3) Acute renal failure (4) pyuria (5) Hyperkalemia (6) Dehydration (7) Lactic acid acidosis (8) rhabdomyolysis (9) Myalgia Disposition: DC- TO HOME OR SELFCARE Time spent for discharge: 35 minutes Core Measure Documentation - Palliative Care Palliative Care/ Comfort Measures: Not Applicable - Core Measures Any of the following diagnoses?: none Exam - Physical Exam Narrative exam: VITAL SIGNS: Reviewed. GENERAL: The patient appears normally developed, Vital signs as documented. HEAD: No signs of head trauma. EYES: Pupils are equal. Extraocular motions intact. EARS: Hearing grossly intact. MOUTH: Oropharynx is normal. NECK: No adenopathy, no JVD. CHEST: Chest with clear breath sounds bilaterally. No wheezes, rales, or rhonchi. CARDIAC: Regular rate and rhythm. S1 and S2, without murmurs, gallops, or rubs. VASCULAR: No Edema. Peripheral pulses normal and equal in all extremities. ABDOMEN: Soft, non tender and non distended. No rebound or guarding, and no masses palpated. Bowel Sounds normal. MUSCULOSKELETAL: Good range of motion of all major joints. Extremities without clubbing, cyanosis or edema. NEUROLOGIC EXAM: Alert and oriented x 3 No focal sensory or strength deficits. Speech normal. Follows commands. PSYCHIATRIC: Mood normal. SKIN: detail exam as documented in skin assessment - Constitutional Vitals: Temp Pulse Resp BP Pulse Ox 98.0 F 56 L 18 110/64 96 05/24/20 04:36 05/24/20 04:36 05/24/20 04:36 05/24/20 04:36 05/24/20 04:36 Plan Activity: advance as tolerated, fall precautions Diet: low fat Follow up with: PRIMARY MD ALLYSSA [Primary Care Provider] - 3-5 Days [facility] [Provider Group] - 7 Days Prescriptions: Ondansetron [Zofran Odt] 4 mg PO Q8HR #30 [email or web address]
[2020-05-24 12:09] VITALS: BP 129/73
[2020-05-25] MEDS ORDERED: FAMOTIDINE 20 MG TAB PO SCH (10:00)
== END 2020-05-24 13:57 | disposition home or self-care (01) ==
LOC: ED 01:07 → IMCU 05:38 → INTOOBSV 05:38 → 4A 11:19
PROVIDERS: ADMIT Internal Medicine Geriatric Medicine; ATTEND Internal Medicine
DX: N17.9 Acute kidney failure, unspecified (principal); R65.10 Systemic inflammatory response syndrome (SIRS) of non-infectious origin without acute organ dysfunction; K52.9 Noninfective gastroenteritis and colitis, unspecified; E87.5 Hyperkalemia; E86.0 Dehydration; N39.0 Urinary tract infection, site not specified; E87.2 Acidosis; R74.8 Abnormal levels of other serum enzymes; M62.82 Rhabdomyolysis; E78.5 Hyperlipidemia, unspecified; F17.200 Nicotine dependence, unspecified, uncomplicated
CPT/HCPCS: 36415; 71046; 74176; 80048; 80053; 81001; 82140; 82550; 82565; 83690; 84520; 85025; 87086; 93005; 96361; 96365; 96367; 96375; 99291; G0378; J0692; J1644; J2405; J2543; J7030; J1815